=== PATIENT | male | born 1960 | race African-American/Black ===

== ENCOUNTER 2022-07-28 14:44 | Emergency (ER) | payer OTHER ==
[~2022-07-28] VITALS: Ht 177.8 cm; Wt 87.0 kg
[2022-07-28] MEDS ORDERED: KETOROLAC 60MG/2ML VIAL IM ONE (15:15)
[2022-07-28 15:27] VITALS: BP 167/92
[2022-07-28] MEDS ORDERED: IBUP-2029 MT (18:30)
[2022-07-28] MEDS ORDERED: CYCL10TA21 MT (18:30)
== END 2022-07-28 18:41 | disposition home or self-care (01) ==
LOC: ER 14:44
DX: S09.90XA Unspecified injury of head, initial encounter (principal); S10.93XA Contusion of unspecified part of neck, initial encounter; V49.49XA Driver injured in collision with other motor vehicles in traffic accident, initial encounter; Y93.89 Activity, other specified; Y92.89 Other specified places as the place of occurrence of the external cause; Y99.8 Other external cause status; I10 Essential (primary) hypertension
CPT/HCPCS: 70450; 72125; 96372; 99284; J1885